=== PATIENT | male | born 1980 | race Caucasian/White ===

== ENCOUNTER 2023-05-28 14:18 | Outpatient (CLI) | payer BC, SELFPAY ==
--- NOTE | ~2023-05-28 | CT_ITS ---
EXAMINATION: CT sinus wo con DATE: 05/28/2023 14:33 INDICATION: Chronic sinusitis TECHNIQUE: Computed tomography (CT) of the paranasal sinuses was performed without intravenous contra st. The dose-length product was 281.78 mGy-cm. Automated exposure control and iterative reconstructio n technique were employed. COMPARISON: None FINDINGS: There is mild mucosal thickening of the maxillary, ethmoid, sphenoid and frontal sinuses. N o significant air-fluid level. Rightward nasal septal deviation. Right ostiomeatal unit is patent. Le ft ostiomeatal unit is partially occluded by soft tissue. No mucoperiosteal reaction. Mastoids are pn eumatized. IMPRESSION: 1. Moderate sinus disease. Reviewed, dictated and finalized at location A. IMPRESSION: 1. Moderate sinus disease.
== END 2023-05-28 14:19 ==
PROVIDERS: PCP Nurse Practitioner Adult Health; Visit Provider Nurse Practitioner Adult Health
DX: J32.9 Chronic sinusitis, unspecified (principal)
CPT/HCPCS: 70486